=== PATIENT | male | born 1955 | race Caucasian/White ===

== ENCOUNTER → 2017-10-10 | Outpatient (CLI) | payer OTHER | LOC: M SLEEP 19:20 | DX: G47.30 Sleep apnea, unspecified (principal) | CPT/HCPCS: 95811 ==

== ENCOUNTER → 2018-03-10 | Outpatient (CLI) | payer OTHER ==
[2018-03-10 09:27] LABS: BASO % 0.6 % (0.0-1.0); EOS # 0.4 10^3/uL (0.0-0.50); EOS % 5.8 % (0.0-3.0); HEMOGLOBIN 13.7 g/dl (13.5-17.5); LYMPH # 1.2 10^3/uL (1.5-4.5); LYMPH % 18.6 % (24.0-44.0); MEAN CORPUSCULAR HEMOGLOBIN 31.8 pg (27.0-33.0); MEAN CORPUSCULAR HGB CONC 33.4 g/dl (32.0-36.5); MEAN CORPUSCULAR VOLUME 95.1 fl (80.0-96.0); MONO # 0.5 10^3/uL (0.0-0.8); MONO % 7.8 % (0.0-5.0); NEUTROPHILS # 4.3 10^3/uL (1.8-7.7); PLATELET COUNT, AUTOMATED 144 10^3/uL (150-450); RED BLOOD COUNT 4.31 10^6/uL (4.30-6.10); WHITE BLOOD COUNT 6.4 10^3/uL (4.0-10.0)
== END ==
LOC: M WUC 08:27
PROVIDERS: ATTEND Physician Assistant
DX: M79.672 Pain in left foot (principal)

== ENCOUNTER 2020-03-27 03:38 | Day surgery (SDC) | payer OTHER ==
[~2020-03-27] VITALS: Ht 200.7 cm; Wt 189.1 kg
[2020-03-27] VITALS (9 sets, daily range): BP systolic 127–224; BP diastolic 60–88
[2020-03-27] MEDS ORDERED: CARD240C5 PO (03:53)
[2020-03-27] MEDS ORDERED: DILT120T PO (03:53)
[2020-03-27] MEDS ORDERED: WARF-22 PO ×2 (03:53)
[2020-03-27] MEDS ORDERED: OLME1TAB51 PO (03:53)
[2020-03-27 04:40] LABS: BASO % 0.2 % (0.0-1.0); EOS # 0.2 10^3/uL (0.0-0.5); EOS % 2.2 % (0.0-3.0); HEMATOCRIT 41.4 % (42.0-52.0); HEMOGLOBIN 13.4 g/dl (13.5-17.5); LYMPH # 1.1 10^3/uL (1.5-5.0); LYMPH % 12.2 % (24.0-44.0); MEAN CORPUSCULAR HEMOGLOBIN 32.1 pg (27.0-33.0); MEAN CORPUSCULAR HGB CONC 32.4 g/dl (32.0-36.5); MEAN CORPUSCULAR VOLUME 99.3 fl (80.0-96.0); MONO # 0.7 10^3/uL (0.0-0.8); MONO % 7.4 % (0.0-5.0); NEUTROPHILS # 6.9 10^3/uL (1.5-8.5); NEUTROPHILS % 77.7 % (36.0-66.0); PLATELET COUNT, AUTOMATED 153 10^3/uL (150-450); RED BLOOD COUNT 4.17 10^6/uL (4.30-6.10); WHITE BLOOD COUNT 8.8 10^3/uL (4.0-10.0)
[2020-03-27 04:55] LABS: INR 2.76; PROTHROMBIN TIME 29.8 SECONDS (12.5-14.3)
[2020-03-27 04:56] LABS: PARTIAL THROMBOPLASTIN TIME 45.4 SECONDS (24.2-38.5)
--- NOTE | 2020-03-27 04:56 | REPVR ---
PROCEDURE INFORMATION: Exam: XR Chest, 1 View Exam date and time: 03/27/2020 4:18 AM Age: 64 years old Clinical indication: Chest pain TECHNIQUE: Imaging protocol: XR of the chest Views: 1 view. COMPARISON: No relevant prior studies available. FINDINGS: Lungs: Left retrocardiac opacity. Pleural space: Suggestion of left pleural effusion. Heart/Mediastinum: Cardiomegaly. Vasculature: Enlargement of the aortic knob. Bones/joints: Status post median sternotomy and probably CABG. IMPRESSION: Cardiomegaly and enlargement of the aortic knob. Suggestion of left pleural effusion. Electronically signed by: Connor Bhatt On 03/27/2020 04:56:28 AM
[2020-03-27 05:10] LABS: RSV AMPLIFICATION NEGATIVE (NEGATIVE)
[2020-03-27 05:14] LABS: BILIRUBIN,DIRECT 0.2 MG/DL (0.0-0.2); BILIRUBIN,TOTAL 0.7 MG/DL (0.2-1.0); CALCIUM LEVEL 8.8 MG/DL (8.8-10.2); CK-MB VALUE MASS 1.5 NG/ML (<3.6); CREATININE FOR GFR 1.71 MG/DL (0.70-1.30); FREE T4 1.3 NG/DL (0.76-1.46); GLOMERULAR FILTRATION RATE 43.3 (>49); MB/CK RELATIVE INDEX 1.01 (< OR =4); POTASSIUM SERUM 4.8 MEQ/L (3.5-5.1); THYROID STIMULATING HORMONE 2.84 uIU/ML (0.358-3.740); TOTAL PROTEIN 6.9 GM/DL (6.4-8.2); TROPONIN I 0.02 NG/ML (< 0.10)
[2020-03-27] MEDS ORDERED: ceFAZolin SOD 2 GM in IV 1 EA IV ONE (05:30)
[2020-03-27] MEDS ORDERED: WARF4TAB51 PO (05:53)
[2020-03-27] MEDS ORDERED: PHYTONADIONE INJection 5 MG in NS 50 ML IV ONE (06:00)
[2020-03-27] MEDS: DOBUTamine HCL 500,000 MCG in IV 1 EA IV SCH ×2 (09:07→09:14)
[2020-03-27] MEDS ORDERED: LIDOCAINE 1% MDV 20ML VIAL As Ordered ONE (09:48)
--- NOTE | 2020-03-27 09:51 | ECGEPIP ---
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
[2020-03-27] MEDS ORDERED: LIDOCAINE 1% MDV 20ML VIAL IM ONE (10:00)
--- NOTE | 2020-03-27 10:37 | REP ---
INDICATION: TEMPORARY PACER PLACEMENT COMPARISON: 03/27/2020 TECHNIQUE: Portable AP view of the chest FINDINGS: Stable cardiomegaly and postsurgical changes to the mediastinum and cardiac silhouette. Visualized lung vail are clear/stable. No obvious acute consolidation, effusion, or pneumothorax. IMPRESSION: No acute cardiopulmonary process appreciated. <Electronically signed by Andrzej Breaux > 03/27/20 1033
[2020-03-27 12:36] LABS: INR 1.8; PROTHROMBIN TIME 21.3 SECONDS (12.5-14.3)
[2020-03-27] MEDS ORDERED: LIDOCAINE 1% SDV 30ML VIAL As Ordered ONE (12:39)
[2020-03-27] MEDS ORDERED: propofoL 500 MG/50 ML VIAL As Ordered ONE (12:50)
[2020-03-27] MEDS ORDERED: dexameTHASONE 4 MG/ML 1ML VIAL (J1100 PER 1MG) As Ordered ONE (12:51)
[2020-03-27] MEDS ORDERED: MIDAZOLAM INJ 2MG/2ML VIAL (J2250 PER 1MG) As Ordered ONE ×2 (12:51→13:48)
[2020-03-27] MEDS ORDERED: ONDANSETRON 4MG/2ML VIAL As Ordered ONE (12:51)
[2020-03-27] MEDS ORDERED: KETAMINE HCL 200 MG/20 ML VIAL As Ordered ONE (12:51)
[2020-03-27] MEDS ORDERED: propofoL 200 MG/20 ML VIAL As Ordered ONE (14:30)
[2020-03-27] MEDS ORDERED: ACETAMINOPHEN 1000MG 100ML IV BTL (OFIRMEV) (J0131 PER 10MG) As Ordered ONE (15:10)
[2020-03-27] MEDS ORDERED: traMADol 50 MG TAB PO PRN (15:15)
[2020-03-27] MEDS ORDERED: ACETAMINOPHEN TAB 650MG DOSE (2X325MG) PO PRN (15:15)
[2020-03-27] MEDS ORDERED: LR 1,000 ML IV SCH (15:30)
[2020-03-27] MEDS ORDERED: oxyCODONE 5MG TAB PO PRN (15:30)
[2020-03-27] MEDS ORDERED: ONDANSETRON 4MG/2ML VIAL IV PRN (15:30)
--- NOTE | 2020-03-27 15:49 | REP ---
INDICATION: Post pacemaker implant COMPARISON: 03/27/2020 at 10:10 a.m. TECHNIQUE: Portable AP view of the chest FINDINGS: Patient is status post pacemaker placement. Stable cardiomegaly and diffuse chronic interstitial changes again noted. No obvious focal consolidation, effusion, or pneumothorax. IMPRESSION: Status post pacemaker. Stable cardiomegaly and chronic changes. <Electronically signed by Andrzej Breaux > 03/27/20 1545
[2020-03-27] MEDS ORDERED: SLF 3 ML SYR IV PRN (17:45)
[2020-03-27] MEDS: OLMESARTAN MEDOXOMIL 20 MG TAB (BENICAR) PO SCH (18:38)
[2020-03-27] MEDS: diltiaZEM **CD** 180 MG CAP PO SCH (21:04)
[2020-03-27] MEDS: ceFAZolin SOD 1 GM in D5W MINI-BAG PLUS 50 ML IV SCH (21:04)
[2020-03-27] MEDS: SLF 3 ML SYR IV SCH (21:05)
--- NOTE | 2020-03-27 23:28 | ECGEPIP ---
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 Patient was in a complete heart block. Electronically Signed on 03-27-2020 23:27:48 EST by Neftaly Mccarty
[2020-03-28] VITALS: BP 125/92
[2020-03-28 04:00] VITALS: BP 140/65
[2020-03-28] MEDS: ceFAZolin SOD 1 GM in D5W MINI-BAG PLUS 50 ML IV SCH ×2 (04:25→12:18)
[2020-03-28] MEDS: SLF 3 ML SYR IV SCH ×2 (05:16→12:18)
--- NOTE | 2020-03-28 06:46 | RO ---
OPERATIVE NOTE DATE OF OPERATION: 03/27/2020 PROCEDURE: Insertion of transvenous temporary pacemaker. IMPLANTING BREWERY PUMPER: Dr. Erik Simmons ANESTHESIA: Local. INDICATION: Complete heart block with near syncope. BRIEF DESCRIPTION: The patient presented earlier this morning at 4 a.m. to our emergency department having had a several-day history of near-syncope and rates as low as the 30s. However, earlier today he collapsed. In our emergency room, he presented with rates in the 30s and was asymptomatic in the supine position. However, during observation his rate dropped into the 20s and he developed an episode of confusion with heart rate of 15 beats per minute. In light of this, we elected to insert a temporary transvenous pacemaker while we were giving him low-dose vitamin k and fresh frozen plasma to try and correct his elevated PT/INR. DESCRIPTION OF PROCEDURE: The patient has been fasting. The right side of his neck was prepped and draped in the usual sterile fashion. The skin over the posterior approach to his right internal jugular vein was infiltrated with local anesthesia with 1% lidocaine. The right internal jugular vein was then catheterized using the Seldinger technique. A 6-[place] introducer with side port was advanced without difficulty. A 5-[place] balloon flotation bipolar pacing lead was then advanced under EKG control to the right ventricle. Pacing threshold less than 1 volt with intrinsic R waves of 5 millivolts. The side port introducer catheter was secured in position with a suture and the puncture site was dressed with an OpSite and gauze. His temporary packing pulse generator was set for a pulse of 50 beats per minute, output of 5 volts and at full sensitivity. No apparent complications. ESTIMATED BLOOD LOSS: Less than 5 mL. At this point, it should be safe to wait for his PT/INR to decrease prior to proceeding with permanent pacemaker implantation later today. [facility]
--- NOTE | 2020-03-28 06:59 | CR ---
EMERGENCY CARDIOLOGY CONSULTATION DATE: 03/27/2020 REFERRING PHYSICIAN: Tez Dillard M.D. at [facility] Emergency Room INDICATION: Recurrent near syncope and complete heart block. HISTORY: This 64-year-old , father of two grown children, retired resident of [place], [place], has a complicated history including a thoracic aneurysm and aortic valve disorder, status post aortic valve replacement (mechanical) and ascending aortic aneurysm repair 1998. He has been followed by Dr. Wong, credit specialist in [place] on a regular basis. Other medical problems include morbid obesity and hypertension. Does feel limited by shortness of breath, but denies orthopnea. Longstanding ankle swelling. No history of chest pain. Report coronary arteriogram showed no evidence of disease. Claims not to have had any follow up stress testing. Has had occasional palpitations, but not so much in the past few days. Denies history of systemic thromboembolic event, bleeding complication or fever or chills. Last echocardiogram with his credit specialist was May or June of last year and he claims his valve was working properly and ascending aorta was stable. On combination antihypertensive therapy, his blood pressure has been controlled 125-130/60s. Denies claudication. For at least the past two days, he has been feeling profound dizzy spells and he found his pulse to be slow. This morning while trying to get dressed, he collapsed, but he denies having lost consciousness. He had taken his pulse and found this to be in the 30s. His insisted he come to the emergency room. Upon presentation, when he walked in to the facility, he reported feeling some shortness of breath and low heart rate with intermittent pulse in high 30s for the past two days and that he fell earlier today. Initial vital signs showed a pulse rate of 46 beats per minute (BPM), blood pressure was 134/50, O2 saturation was 98% on room air, respiratory rate was 18. Portable upright chest x-ray showed obvious cardiomegaly with enlargement of his aortic knob, prior sternotomy, but they were unable to visualize his prosthetic valve because of his girth. No pulmonary venous congestion. Clear lung vali with possible left pleural effusion with left retrocardiac opacity. His electrocardiogram (EKG) showed complete heart block with junctional escape rhythm at 39 beats per minute (BPM). Transcutaneous, noninvasive pacing pads were applied and he was connected to a bedside cardioverted defibrillator external pacing system. Cardiology consultation was placed. In the absence of clearly triggering factor that might be reversible, the tentative plan was to arrange for permanent dual chamber pacemaker implantation. Once his oral anticoagulation was partially reversed (PT/INR was 2.7). Low-dose vitamin K and 2 units of fresh frozen plasma were ordered. While he was receiving his first unit of fresh frozen plasma, he was observed to have a heart rate drift to 15 beats per minute with associated confusion. I was contacted and recommended introduction of dobutamine IV infusion and came promptly to the hospital to insert a temporary transvenous pacemaker. CORONARY RISK FACTORS: Age, gender, obesity, hypertension. Life-long nonsmoker with no history of hyperlipidemia, diabetes or family history of premature coronary heart disease. OTHER PAST MEDICAL HISTORY: Morbid obesity. Tonsillectomy, appendectomy, peripheral venous insufficiency, severe obstructive sleep apnea (sleep study October 10, 2017). Peripheral venous insufficiency, seborrheic keratosis. Solitary pulmonary nodule 2012. Cancer of the colon with partial colectomy in 2012 with recent. Colonoscopic examination was Dr. Victoria Renee, showing no evidence of recurrent disease. Prostatism. SYSTEMS REVIEW: Has been free of any fever, chills or weight lost. Wear corrective lenses for reading. No known thyroid dysfunction. Effort dyspnea, but denies cough or sputum. No history of hemoptysis. Prior episodes of pneumonia. Denies heartburn, reflux, abdominal pain or change in bowel habit. No gastrointestinal (GI) bleeding. Nocturia times two nightly is chronic. No known renal insufficiency or kidney stones. Has ankle arthralgia, but no other musculoskeletal complaints. No abnormal bleeding on his oral anticoagulation. All other systems review is negative. MEDICATIONS: Diltiazem 240 mg by mouth daily q a.m. and 120 mg by mouth q.h.s., olmesartan/hydrochlorothiazide 40-12.5 mg tablets, one tablet daily, warfarin as directed (recently 10 mg daily, except for 12 mg ). ALLERGIES: ASPIRIN ? reaction. PHYSICAL EXAMINATION: CONSTITUTIONAL: Morbidly obese, late middle aged male, currently lying comfortably with the head of the bed elevated 30 degrees. Connected to a bedside cardioverted defibrillator/noninvasive pacing system. VITAL SIGNS: Heart rate 42 beats per minute (BPM) and regular with pauses on the monitor and rates down into the 20s. Blood pressure 167/70 supine, respiratory rate 20 on supplemental oxygen by nasal prongs at 2 liters, O2 saturation 99%. Afebrile. Weight 396 pounds, height 79 inches, body mass index (BMI) 44.6. EYES: Normal conjunctivae and lids. No xanthelasmas. ENT/MOUTH: Currently wearing a mask because of COVID. NECK: Trachea midline. Thyroid did not appear to be enlarged. Neck veins were challenging to evaluate because of his body habitus. RESPIRATORY: Increased anterior posterior chest diameter with normal chest expansion. Well-healed sternotomy incision. Good air entry of both lung vail with no current abnormal pulmonary adventitious sounds. CARDIOVASCULAR: Apical impulse not palpable. Heart sounds crisp opening and closing of his prosthetic valve. Could not detect a gallop or murmur. No rub. Carotid upstroke appeared to be brisk with increased volume, but slow rate as mentioned. No audible bruits. Upper extremity pulses were symmetrical and normal. Abdominal aorta was not palpable because of his obesity. Femoral pulses were also difficult. Pedal pulses were palpable despite some ankle swelling. Has 1 mm pitting edema and stasis dermatitis and pigmentation [address] both lower legs. No abdominal bruit. GI: Protuberant, soft and nontender. No apparent hepatosplenomegaly. Rectal examination not indicated. MUSCULOSKELETAL: No obvious joint deformities. Muscular strength and tone appear to be normal. Gait was not assessed at this time because of his complete heart block and near syncope. NEURO/PSYCH: At this time, he is bright, alert and oriented. He gave me lucid history. Eye, facial and extremities were symmetrical and normal. No involuntary movements. SKIN: Well-healed surgical incisions. No pallor, cyanosis or icterus. Degenerative skin changes as mentioned above, both lower legs. INVESTIGATIONS: Portable upright chest x-ray was reviewed independently: This study was done following the temporary transvenous pacemaker insertion, right internal jugular vein. In light of his obesity and girth, details of his lung vail were challenging. His heart was obviously enlarged and aorta slightly unfolded. No apparent infiltrate or visible pleural effusion. It was difficult to visualize his temporary transvenous pacing wire. Electrocardiogram (EKG) taken earlier this morning at 4:08 a.m. showed underlying sinus rhythm with rate 96 beats per minute. Complete heart block with junctional escape rhythm with ventricular rate of 36 beats per minute. Slightly low voltage, but normal axis. Slow precordial R wave progression. Cannot rule out a prior septal infarction, but this may well have been related to his body habitus alone. QRS complexes showed an incomplete left bundle branch block. Lateral ST scooping. No prior tracing for comparison. LAB WORK: Hemoglobin 13.4 with normal white blood cell count and platelet count. PT/INR 29.8-2.76, PTT was 45. Follow up PT/INR is pending. Following low-dose vitamin K, one and two units of fresh frozen plasma. COVID testing was negative. IMPRESSION/PLAN: 1. Complete heart block: Suspected to be related to intrinsic conduction tissue disease, status post remote aortic valve replacement and his hypertension. Has been unstable. Diltiazem therapy for his blood pressure, which is not likely responsible for what we are seeing. 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 The indication, procedure and potential risks were discussed with the patient who appeared to understand and agree. 2. Abnormal electrocardiogram (EKG): Despite his multiple risk factors, this patient has been free of any chest pain. His electrocardiogram (EKG) does not show significant repolarization abnormalities and his troponin I level was negative. We plan on ultimately continuing his protective combination diltiazem, angiotensin receptor galen and oral anticoagulant therapy. 3. Heart failure (diastolic/acute on chronic): Effort dyspnea is likely on the basis of several factors including his long-standing morbid obesity and degree of physical decondition. But echocardiogram performed earlier today does show left ventricular hypertrophy and a moderately dilated left atrium in keeping with a chronically elevated mean left atrial pressure. Undoubtedly, this is on the basis of his obesity and hypertension. Acute exacerbation likely related to his bradyarrhythmia. Pro BNP level today measured 2671. He does not appear to be clinically overloaded and I suspect his respiratory problems will improve following implantation of dual chamber pacemaker later today. 4. Hypertensive heart disease (benign with heart failure): Current systolic hypertension clearly related to his bradyarrhythmia compensating for his slow heart rate. Home blood pressure readings have been controlled on his combination calcium channel galen, angiotensin receptor galen and thiazide diuretic. Chemistry today shows electrolyte balance with BUN 55, creatinine 1.7. Undoubtedly significant prerenal azotemia on the basis of his bradyarrhythmia and renal hyperperfusion. I am also cautiously optimistic that this will significantly improve with uatsdin of a normal AV sequential contraction and normal heart rate. His customary antihypertensive therapy will be resumed postoperatively. 5. Aortic valve disorder (nonrheumatic)/post aortic valve replacement (mechanical): From his examination and his echocardiogram performed earlier today, his prosthetic valve appears to be functioning appropriately. Fortunately on his current oral anticoagulation, he has been free of symptomatic thromboembolic event or hemorrhagic complication. 6. Obesity (body mass index (BMI) 44): A long-standing problem undoubtedly contributing to excessive cardiac workload, his hypertension, as well as obstructive sleep apnea. His echocardiogram did show at least mildly dilated right heart chambers and pulmonary trunk, as well as dilated inferior vena cava. Undoubtedly, a degree of Cor pulmonale related to his sleep disorder. The above impressions were discussed with the patient, who appears to understand. We are cautiously optimistic. Permanent pacemaker implantation will be uncomplicated and he will be able to be discharged tomorrow morning. Tez Wong MD
--- NOTE | 2020-03-28 07:23 | RO ---
OPERATIVE NOTE DATE OF OPERATION: 03/27/2020 PROCEDURE: Implantation of dual-chamber pacemaker. IMPLANTING BALING PRESS OPERATOR: Erik Simmons MD, [facility] ANESTHESIOLOGIST: Van Duque Jr., PREOPERATIVE DIAGNOSES: 1. Complete block with near syncope/syncope. 2. Heart failure (diastolic/acute on chronic) due to his bradycardia. 3. Hypertensive heart disease (benign with heart failure). 4. Aortic valve disorder (non-rheumatic/post prosthetic valve (mechanical)). POSTOPERATIVE DIAGNOSES: 1. Complete block with near syncope/syncope. 2. Heart failure (diastolic/acute on chronic) due to his bradycardia. 3. Hypertensive heart disease (benign with heart failure). 4. Aortic valve disorder (non-rheumatic/post prosthetic valve (mechanical)). TYPE OF ANESTHESIA: Monitored local anesthesia. DESCRIPTION OF PROCEDURE: In the fasting state, following informed consent, he received Ancef 2 grams IV premedication and the patient was taken to the operating theatre. Numerous skin electrodes were applied to facilitate continuous echocardiographic monitoring. The patient had a previously placed right internal jugular temporary transvenous pacemaker in situ in light of symptomatic AV block with heart rate of 15 beats per minute earlier the same day. As a safety measure, we also had self-adhesive cardioverting/defibrillating pads in an anteroposterior configuration. The left subclavian region was prepped and draped in the usual fashion and the skin was infiltrated with 1% Xylocaine. The left axillary vein was catheterized using the micropuncture technique. A 5-cm linear incision was made several centimeters below and parallel to the left clavicle. Dissection was carried down to the level of the pectoralis fascia. The pocket was fashioned below the level of the incision line. Two bipolar screw-in active fixation steroid-eluting pacing leads were then positioned to the right ventricular apex and high right atrial appendage under fluoroscopic and electrocardiographic control. The ventricular lead ([employer], Model No. 2088TC/58, Serial No. [id number]) measurements were focal and stimulation threshold 0.6 V/0.4 ms/impedance 568 ohms. The R wave amplitude measured 13.9 mV. The atrial lead ([employer], Model No. 2088TC/52, Serial No. [id number]) measurements were focal and stimulation threshold 0.5 V/0.4 ms/impedance 378 ohms. The P wave amplitude measured 1.4 mV. This P wave in the recovery room had actually increased to 4.9 mV. By the time he reached the recovery room, there was no intrinsic ventricular activity. These leads were secured in position with sleeves sutured at their insertion site. They were then connected to a dual-chamber pulse generator ([employer], Model No. CZ2659, Serial No. [id number]) and appropriate DDP pacing was documented. The generator was placed in the pocket and secured in position with a suture through the right upper hand corner of the epoxy header. At this point, the temporary transvenous pacemaker was carefully removed under fluoroscopy. No apparent complications. ESTIMATED BLOOD LOSS: Approximately 10 mL. Postoperative portable upright chest x-ray showed good lead position with no pneumothorax. His EKG showed consistent atrially sensed sinus rhythm at 77 beats per minute with tracking and consistent ventricular paced QRS complexes having a left axis and LBBB configuration. Our plan is to monitor the patient on telemetry overnight and especially in light of his body habitus and the depth of his incision, we plan to give him an additional three doses of Ancef 1 gram IV every 8 hours. We anticipate his discharge from the hospital by approximately noon tomorrow. 9
[2020-03-28 07:36] LABS: CREATININE FOR GFR 1.42 MG/DL (0.70-1.30); GLOMERULAR FILTRATION RATE 53.6 (>49); POTASSIUM SERUM 5.8 MEQ/L (3.5-5.1)
[2020-03-28 08:00] VITALS: BP 150/60
--- NOTE | 2020-03-28 08:06 | ECGEPIP ---
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 Paced QRS complexes with left axis and LEFT BUNDLE BRANCH BLOCK configuration in keeping with RV apical stimulation. No change from 03/27/20. Electronically Signed on 03-28-2020 8:06:24 EST by Erik Simmons
--- NOTE | 2020-03-28 08:06 | REP ---
INDICATION: Post pacemaker implant COMPARISON: 03/27/2020 TECHNIQUE: PA and lateral. FINDINGS: Recently placed pacemaker in stable satisfactory position. The lung vail are essentially unchanged with chronic elevation to the left hemidiaphragm and suspected chronic basilar changes. No obvious new acute process identified. No evidence for pneumothorax. No definite effusion. Skeletal structures are intact.. IMPRESSION: No significant change from prior examination. <Electronically signed by Andrzej Breaux > 03/28/20 0802
[2020-03-28] MEDS ORDERED: WARFARIN SOD 5MG TAB PO ONE (08:15)
--- NOTE | 2020-03-28 08:18 | ECHO ---
DATE OF PROCEDURE: 03/27/2020 Age: 64 Gender: Male Height: 76 inches Weight: 390 pounds Body surface area: 2.94 m2 PATIENT LOCATION: Outpatient in the emergency room. REFERRING PHYSICIAN: Tez Dillard M.D. and Erik Simmons M.D. INDICATION: Cardiomegaly. Mechanical aortic valve. Shortness of breath. MEASUREMENTS: 2D Measurements: RV 4.2 cm LV 5.6 cm Septum 1.3 cm Posterior wall 1.3 cm Aortic Root 4.2 cm Ascending aorta 4.2 cm Aortic arch 5.6 cm Proximal ascending aorta 3.8 cm LA 5.2 cm LVEF 70% Doppler Measurements: AV 3.2 m/s LVOT 1.24 m/s Mean AV gradient 19 mmHg Dimensionless index 0.44 MV-E 100 Early mitral deceleration time 193 msec IVC 2.1 cm COMMENTS: Underlying sinus rhythm with complete heart block and ventricular rate 29 BPM. No intraventricular conduction disturbance. Technically challenging study in light of the patients body habitus, but some diagnostically useful information was still obtained. M-mode and two-dimensional echocardiography was performed with pulse, continuous wave, and color flow studies. Slightly dilated and symmetrically hypertrophied left ventricle with hyperkinetic wall motion related to his complete heart block. At least moderately dilated left atrium. Borderline right heart chamber enlargement with adequate right ventricular free wall motion. Unable to obtain adequate Doppler signal to assess right ventricular systolic pressure, but his pulmonary trunk was 3.5 cm in keeping with chronic pulmonary hypertension. Mildly dilated IVC with adequate respiratory collapse against a significantly elevated central venous pressure at this time. Status post replacement of his aortic root and descending aorta with at least mildly dilated measurements. His aortic arch was prominently dilated and ascending aorta was essentially normal in size. Very small posterior pericardial effusion without evidence of cardiac chamber compression. MTDD
[2020-03-28] MEDS: OLMESARTAN MEDOXOMIL 20 MG TAB (BENICAR) PO SCH (08:25)
[2020-03-28 08:26] VITALS: BP 150/60
[2020-03-28] MEDS: diltiaZEM **CD** 180 MG CAP PO SCH (08:26)
[2020-03-28 12:00] VITALS: BP 145/65
== END 2020-03-28 16:45 | disposition home or self-care (01) ==
LOC: M ED 03:38 → M SDC 12:55 → M PCU 15:54 → M SDC 03-28 16:45
PROVIDERS: ATTEND Internal Medicine Cardiovascular Disease
DX: I44.2 Atrioventricular block, complete (principal); R55 Syncope and collapse; I50.33 Acute on chronic diastolic (congestive) heart failure; I11.0 Hypertensive heart disease with heart failure; G47.30 Sleep apnea, unspecified; I35.9 Nonrheumatic aortic valve disorder, unspecified; E66.01 Morbid (severe) obesity due to excess calories; R94.31 Abnormal electrocardiogram [ECG] [EKG]; Z79.01 Long term (current) use of anticoagulants; Z88.8 Allergy status to other drugs, medicaments and biological substances
CPT/HCPCS: 33208; 33210; 36415; 36430; 71045; 71046; 76000; 80048; 80076; 82550; 82553; 83690; 83880; 84439; 84443; 84484; 85025; 85610; 85730; 86900; 86901; 86927; 87631; 93005; 93041; 93306; 94760; 96361; 96365; 96366; 96367; 96372; 99285; C1785; C1898; J0690; J1100; J1250; J2250; J2405; J3430; P9017

== ENCOUNTER 2021-01-22 08:38 | Inpatient (IN) | payer OTHER ==
[~2021-01-22] VITALS: Ht 198.1 cm; Wt 168.4 kg
[~2021-01-22 08:38] MED LIST: CARD240C5 PO; DILT120T PO; OLME1TAB51 PO; WARF-22 PO; WARF4TAB51 PO
[2021-01-22 09:53] LABS: BASO % 0.2 % (0.0-1.0); HEMATOCRIT 34.7 % (42.0-52.0); HEMOGLOBIN 11.6 g/dl (13.5-17.5); LYMPH # 0.5 10^3/uL (1.5-5.0); LYMPH % 11.5 % (24.0-44.0); MEAN CORPUSCULAR HEMOGLOBIN 31.9 pg (27.0-33.0); MEAN CORPUSCULAR HGB CONC 33.4 g/dl (32.0-36.5); MEAN CORPUSCULAR VOLUME 95.3 fl (80.0-96.0); MONO # 0.3 10^3/uL (0.0-0.8); MONO % 8.4 % (2.0-8.0); NEUTROPHILS # 3.2 10^3/uL (1.5-8.5); NEUTROPHILS % 79.2 % (36.0-66.0); PLATELET COUNT, AUTOMATED 113 10^3/uL (150-450); RED BLOOD COUNT 3.64 10^6/uL (4.30-6.10); WHITE BLOOD COUNT 4.1 10^3/uL (4.0-10.0)
[2021-01-22 09:56] LABS: ABG BASE EXCESS 1.2 (-2.0-2.0); ABG HCO3 24.5 MEQ/L (22.0-26.0); ABG O2 SATURATION 97.3 % (95.0-99.0); ABG PARTIAL PRESSURE CO2 34.7 mmHg (35.0-45.0); ABG PARTIAL PRESSURE O2 94.5 mmHg (75.0-100.0); ABG STANDARD HCO3 25.5 MEQ/L (22.0-26.0); ABG TOTAL CO2 25.6 MEQ/L (23.0-31.0); ABG pH (ARTERIAL) 7.467 UNITS (7.350-7.450)
[2021-01-22] MEDS ORDERED: WARF-23 PO (10:24)
[2021-01-22] MEDS ORDERED: DILT120C89 PO (10:24)
[2021-01-22 10:26] LABS: ALT/SGPT 20 U/L (12-78); BILIRUBIN,TOTAL 0.9 MG/DL (0.2-1.0); BLOOD UREA NITROGEN 39 MG/DL (7-18); C REACTIVE PROTEIN QUANTITATIV 8.92 MG/DL (0.00-0.30); CALCIUM LEVEL 8.1 MG/DL (8.8-10.2); CARBON DIOXIDE LEVEL 27 MEQ/L (21-32); CHLORIDE LEVEL 100 MEQ/L (98-107); CK-MB VALUE MASS < 1.0 NG/ML (<3.6); CPK CREATINE PHOSPHOKINASE 183 U/L (39-308); CREATININE FOR GFR 1.74 MG/DL (0.70-1.30); FERRITIN 1035 NG/ML (26-388); GLOMERULAR FILTRATION RATE 42.3 (>49); GLUCOSE, FASTING 108 MG/DL (70-100); LDH LACTATE DEHYDROGENASE 487 U/L (87-241); MB/CK RELATIVE INDEX 0.55 (< OR =4); POTASSIUM SERUM 4.6 MEQ/L (3.5-5.1); SODIUM LEVEL 134 MEQ/L (136-145); TROPONIN I < 0.02 NG/ML (< 0.10)
[2021-01-22] MEDS ORDERED: VITMTA PO (10:33)
[2021-01-22] MEDS ORDERED: D31000TA2 PO (10:33)
[2021-01-22] MEDS ORDERED: VITA250T4 PO (10:33)
[2021-01-22] MEDS ORDERED: HOME MED LIST COMPLETE! XX SCH (10:35)
[2021-01-22] MEDS ORDERED: DOXYCYCLINE HYCLATE 100 MG in D5W MINI-BAG PLUS 100 ML IV SCH (11:45)
[2021-01-22] MEDS ORDERED: cefTRIAXone SOD 1 GM in D5W MINI-BAG PLUS 50 ML IV SCH (11:45)
[2021-01-22] MEDS: dexameTHASONE 4 MG/ML 1ML VIAL (J1100 PER 1MG) IV SCH (12:27)
[2021-01-22] MEDS: guaiFENesin ER 600 MG TAB PO SCH ×2 (12:27→20:52)
[2021-01-22 13:51] LABS: INR 1.54; PROTHROMBIN TIME 18.9 SECONDS (12.7-14.5)
[2021-01-22 13:54] LABS: D-DIMER QUANT 2295.55 ng/ml (<500)
[2021-01-22 14:07] LABS: MAGNESIUM LEVEL 1.9 MG/DL (1.8-2.4)
[2021-01-22] MEDS ORDERED: REMDESIVIR 200 MG in NS 250 ML IV ONE (15:00)
[2021-01-22 16:25] VITALS: O2SAT 91
[2021-01-22 17:00] VITALS: BP 117/59
[2021-01-22] MEDS ORDERED: SODIUM CHLORIDE 0.9% INJ 10 ML SYR IV ONE (17:00)
[2021-01-22] MEDS: WARFARIN SOD 5MG TAB PO SCH (19:24)
[2021-01-22 22:15] VITALS: BP 102/53
[2021-01-23] VITALS: O2SAT 91
[2021-01-23 04:00] VITALS: O2SAT 90
[2021-01-23 05:59] VITALS: BP 118/57
[2021-01-23 07:11] LABS: BASO % 0.2 % (0.0-1.0); HEMATOCRIT 37.6 % (42.0-52.0); HEMOGLOBIN 12.7 g/dl (13.5-17.5); LYMPH # 0.6 10^3/uL (1.5-5.0); LYMPH % 12.9 % (24.0-44.0); MEAN CORPUSCULAR HEMOGLOBIN 31.5 pg (27.0-33.0); MEAN CORPUSCULAR HGB CONC 33.8 g/dl (32.0-36.5); MEAN CORPUSCULAR VOLUME 93.3 fl (80.0-96.0); MONO # 0.5 10^3/uL (0.0-0.8); MONO % 10.4 % (2.0-8.0); NEUTROPHILS # 3.4 10^3/uL (1.5-8.5); NEUTROPHILS % 75.8 % (36.0-66.0); PLATELET COUNT, AUTOMATED 139 10^3/uL (150-450); RED BLOOD COUNT 4.03 10^6/uL (4.30-6.10); WHITE BLOOD COUNT 4.5 10^3/uL (4.0-10.0)
[2021-01-23 07:26] LABS: INR 1.92; PROTHROMBIN TIME 22.4 SECONDS (12.7-14.5)
[2021-01-23 07:39] LABS: ALBUMIN 3.1 GM/DL (3.2-5.2); BILIRUBIN,TOTAL 0.7 MG/DL (0.2-1.0); CALCIUM LEVEL 8.8 MG/DL (8.8-10.2); CREATININE FOR GFR 1.47 MG/DL (0.70-1.30); GLOMERULAR FILTRATION RATE 51.3 (>49); MAGNESIUM LEVEL 2.2 MG/DL (1.8-2.4); POTASSIUM SERUM 4.5 MEQ/L (3.5-5.1); TOTAL PROTEIN 7.2 GM/DL (6.4-8.2)
[2021-01-23] MEDS: MULTIVITAMINS/MINERALS THERAP 1 TAB PO SCH (09:31)
[2021-01-23] MEDS: dexameTHASONE 4 MG/ML 1ML VIAL (J1100 PER 1MG) IV SCH (09:31)
[2021-01-23] MEDS: BARICITINIB 2MG TABLET (OLUMIANT) FOR EUA PO SCH (09:32)
[2021-01-23] MEDS: guaiFENesin ER 600 MG TAB PO SCH ×2 (09:32→22:48)
[2021-01-23 13:11] LABS: APPEARANCE, URINE HAZY (CLEAR); BACTERIA, URINE AUTO NEGATIVE (NEGATIVE); BILIRUBIN, URINE AUTO NEGATIVE (NEGATIVE); BLOOD, URINE BLOOD NEGATIVE (NEGATIVE); COLOR, URINE YELLOW (YELLOW); GLUCOSE, URINE (UA) AUTO NEGATIVE (NEGATIVE); KETONE, URINE AUTO NEGATIVE (NEGATIVE); LEUKOCYTE ESTERASE, URINE AUTO NEGATIVE (NEGATIVE); MUCUS, URINE SMALL (NEGATIVE); NITRITE, URINE AUTO NEGATIVE (NEGATIVE); PROTEIN, URINE AUTO NEGATIVE (NEGATIVE); RBC, URINE AUTO 0 /HPF (0-3); SPECIFIC GRAVITY URINE AUTO 1.017 (1.002-1.035); SQUAMOUS EPITHELIAL CELL UR AU 0 /HPF (0-6); UROBILINOGEN, URINE AUTO 0.2 mg/dL (0.0-2.0); WBC, URINE AUTO 1 /HPF (0-3)
[2021-01-23] MEDS: REMDESIVIR 100 MG in NS 250 ML IV SCH (14:47)
[2021-01-23 14:54] VITALS: BP 120/61
[2021-01-23] MEDS: SODIUM CHLORIDE 0.9% INJ 10 ML SYR IV SCH (15:47)
[2021-01-23] MEDS: WARFARIN SOD 5MG TAB PO SCH (16:33)
[2021-01-23 19:56] VITALS: O2SAT 90
[2021-01-23 20:00] VITALS: BP 125/59
[2021-01-24] VITALS (16 sets, daily range): BP systolic 99–142; BP diastolic 44–102; O2SAT 83–97
[2021-01-24] MEDS ORDERED: IPRATROPIUM 0.5MG/ALBUTEROL 2.5MG INH SOL UD 3ML (DUONEB) NEB PRN (02:20)
[2021-01-24 07:09] LABS: HEMATOCRIT 35.5 % (42.0-52.0); HEMOGLOBIN 12.1 g/dl (13.5-17.5); LYMPH # 0.6 10^3/uL (1.5-5.0); LYMPH % 10.1 % (24.0-44.0); MEAN CORPUSCULAR HEMOGLOBIN 31.6 pg (27.0-33.0); MEAN CORPUSCULAR HGB CONC 34.1 g/dl (32.0-36.5); MEAN CORPUSCULAR VOLUME 92.7 fl (80.0-96.0); MONO # 0.6 10^3/uL (0.0-0.8); MONO % 8.8 % (2.0-8.0); NEUTROPHILS % 80.6 % (36.0-66.0); PLATELET COUNT, AUTOMATED 159 10^3/uL (150-450); RED BLOOD COUNT 3.83 10^6/uL (4.30-6.10); WHITE BLOOD COUNT 6.2 10^3/uL (4.0-10.0)
[2021-01-24 07:26] LABS: INR 2.63; PROTHROMBIN TIME 28.5 SECONDS (12.7-14.5)
[2021-01-24 07:27] LABS: ALBUMIN 2.9 GM/DL (3.2-5.2); ALT/SGPT 28 U/L (12-78); BILIRUBIN,TOTAL 0.8 MG/DL (0.2-1.0); BLOOD UREA NITROGEN 51 MG/DL (7-18); CALCIUM LEVEL 8.8 MG/DL (8.8-10.2); CARBON DIOXIDE LEVEL 24 MEQ/L (21-32); CHLORIDE LEVEL 102 MEQ/L (98-107); CPK CREATINE PHOSPHOKINASE 460 U/L (39-308); CREATININE FOR GFR 1.34 MG/DL (0.70-1.30); FERRITIN 1596 NG/ML (26-388); GLOMERULAR FILTRATION RATE 57.1 (>49); GLUCOSE, FASTING 122 MG/DL (70-100); LDH LACTATE DEHYDROGENASE 588 U/L (87-241); MAGNESIUM LEVEL 2.3 MG/DL (1.8-2.4); NT-PRO BNP 733 PG/ML (<125); PARTIAL THROMBOPLASTIN TIME 55.3 SECONDS (25.9-37.0); POTASSIUM SERUM 4.5 MEQ/L (3.5-5.1); SODIUM LEVEL 136 MEQ/L (136-145); TOTAL PROTEIN 6.7 GM/DL (6.4-8.2); TROPONIN I < 0.02 NG/ML (< 0.10)
[2021-01-24] MEDS: guaiFENesin ER 600 MG TAB PO SCH ×2 (08:11→20:13)
[2021-01-24] MEDS: dexameTHASONE 4 MG/ML 1ML VIAL (J1100 PER 1MG) IV SCH (08:12)
[2021-01-24] MEDS: MULTIVITAMINS/MINERALS THERAP 1 TAB PO SCH (08:12)
[2021-01-24] MEDS: BARICITINIB 2MG TABLET (OLUMIANT) FOR EUA PO SCH (08:12)
[2021-01-24 15:12] LABS: MYCOPLASMA PNEUMONIAE IgG 639 U/mL (0-99); MYCOPLASMA PNEUMONIAE IgM <770 U/mL (0-769)
[2021-01-24] MEDS: REMDESIVIR 100 MG in NS 250 ML IV SCH (15:32)
[2021-01-24] MEDS: SODIUM CHLORIDE 0.9% INJ 10 ML SYR IV SCH (15:33)
[2021-01-24] MEDS: WARFARIN SOD 5MG TAB PO SCH (16:32)
[2021-01-24] MEDS: hydrOXYzine 25 MG TAB PO PRN (20:23)
[2021-01-25] VITALS (7 sets, daily range): BP systolic 125–164; BP diastolic 53–73; O2SAT 84–96
[2021-01-25] MEDS: hydrOXYzine 25 MG TAB PO PRN (02:38)
[2021-01-25 08:00] LABS: HEMATOCRIT 34.9 % (42.0-52.0); HEMOGLOBIN 11.7 g/dl (13.5-17.5); MEAN CORPUSCULAR HEMOGLOBIN 31.3 pg (27.0-33.0); MEAN CORPUSCULAR HGB CONC 33.5 g/dl (32.0-36.5); MEAN CORPUSCULAR VOLUME 93.3 fl (80.0-96.0); PLATELET COUNT, AUTOMATED 175 10^3/uL (150-450); RED BLOOD COUNT 3.74 10^6/uL (4.30-6.10); WHITE BLOOD COUNT 6.8 10^3/uL (4.0-10.0)
[2021-01-25 08:11] LABS: BLOOD UREA NITROGEN 44 MG/DL (7-18); CREATININE FOR GFR 1.16 MG/DL (0.70-1.30); GLUCOSE, FASTING 114 MG/DL (70-100)
[2021-01-25 08:12] LABS: ALBUMIN 2.8 GM/DL (3.2-5.2); ALT/SGPT 32 U/L (12-78); BILIRUBIN,TOTAL 0.8 MG/DL (0.2-1.0); CALCIUM LEVEL 8.7 MG/DL (8.8-10.2); CARBON DIOXIDE LEVEL 28 MEQ/L (21-32); CHLORIDE LEVEL 104 MEQ/L (98-107); GLOMERULAR FILTRATION RATE > 60.0 (>49); MAGNESIUM LEVEL 2.2 MG/DL (1.8-2.4); POTASSIUM SERUM 4.4 MEQ/L (3.5-5.1); SODIUM LEVEL 136 MEQ/L (136-145); TOTAL PROTEIN 6.6 GM/DL (6.4-8.2)
[2021-01-25 08:14] LABS: INR 3.6; PROTHROMBIN TIME 36.1 SECONDS (12.7-14.5)
[2021-01-25 08:44] LABS: ATYPICAL LYMPH 1 % (0-5); LYMPHOCYTES 9 % (16-44); MONOCYTES 9 % (0-5); NEUTROPHILS 81 % (28-66)
[2021-01-25 08:45] LABS: PLATELET ESTIMATE NORMAL (NORMAL)
[2021-01-25] MEDS: guaiFENesin ER 600 MG TAB PO SCH ×2 (10:27→20:55)
[2021-01-25] MEDS: BARICITINIB 2MG TABLET (OLUMIANT) FOR EUA PO SCH (10:27)
[2021-01-25] MEDS: dexameTHASONE 4 MG/ML 1ML VIAL (J1100 PER 1MG) IV SCH (10:27)
[2021-01-25] MEDS: MULTIVITAMINS/MINERALS THERAP 1 TAB PO SCH (10:27)
[2021-01-25] MEDS: REMDESIVIR 100 MG in NS 250 ML IV SCH (16:45)
[2021-01-25] MEDS: SODIUM CHLORIDE 0.9% INJ 10 ML SYR IV SCH (16:46)
[2021-01-25 19:07] LABS: BODY FLUID CULTURE Not indicated. (.); LEGIONELLA ANTIGEN URINE Negative (Negative); ORGANISM ID Not indicated. (.); SPECIMEN SOURCE Urine (.); URINE STREP PNEUMONIAE ANTIGEN Negative (Negative)
[2021-01-26] VITALS (9 sets, daily range): BP systolic 137–162; BP diastolic 63–81; O2SAT 96–98
[2021-01-26] MEDS: hydrOXYzine 25 MG TAB PO PRN ×2 (01:14→20:20)
[2021-01-26 04:57] LABS: BASO % 0.2 % (0.0-1.0); HEMATOCRIT 37.8 % (42.0-52.0); HEMOGLOBIN 12.9 g/dl (13.5-17.5); LYMPH # 0.6 10^3/uL (1.5-5.0); LYMPH % 5.4 % (24.0-44.0); MEAN CORPUSCULAR HEMOGLOBIN 31.8 pg (27.0-33.0); MEAN CORPUSCULAR HGB CONC 34.1 g/dl (32.0-36.5); MEAN CORPUSCULAR VOLUME 93.1 fl (80.0-96.0); MONO # 0.8 10^3/uL (0.0-0.8); MONO % 6.8 % (2.0-8.0); NEUTROPHILS # 9.7 10^3/uL (1.5-8.5); NEUTROPHILS % 86.8 % (36.0-66.0); PLATELET COUNT, AUTOMATED 201 10^3/uL (150-450); RED BLOOD COUNT 4.06 10^6/uL (4.30-6.10); WHITE BLOOD COUNT 11.2 10^3/uL (4.0-10.0)
[2021-01-26 05:08] LABS: INR 4.29; PROTHROMBIN TIME 41.4 SECONDS (12.7-14.5)
[2021-01-26 05:09] LABS: PARTIAL THROMBOPLASTIN TIME 60.1 SECONDS (25.9-37.0)
[2021-01-26 05:28] LABS: ALT/SGPT 38 U/L (12-78); BLOOD UREA NITROGEN 41 MG/DL (7-18); CALCIUM LEVEL 8.7 MG/DL (8.8-10.2); CARBON DIOXIDE LEVEL 25 MEQ/L (21-32); CHLORIDE LEVEL 106 MEQ/L (98-107); CPK CREATINE PHOSPHOKINASE 626 U/L (39-308); CREATININE FOR GFR 1.15 MG/DL (0.70-1.30); GLOMERULAR FILTRATION RATE > 60.0 (>49); GLUCOSE, FASTING 122 MG/DL (70-100); LDH LACTATE DEHYDROGENASE 875 U/L (87-241); POTASSIUM SERUM 4.7 MEQ/L (3.5-5.1); SODIUM LEVEL 137 MEQ/L (136-145)
[2021-01-26 05:29] LABS: FERRITIN 1204 NG/ML (26-388); MAGNESIUM LEVEL 2.3 MG/DL (1.8-2.4); NT-PRO BNP 1886 PG/ML (<125); TOTAL PROTEIN 6.9 GM/DL (6.4-8.2); TROPONIN I 0.02 NG/ML (< 0.10)
[2021-01-26] MEDS: MULTIVITAMINS/MINERALS THERAP 1 TAB PO SCH (07:53)
[2021-01-26] MEDS: guaiFENesin ER 600 MG TAB PO SCH ×2 (07:53→20:19)
[2021-01-26] MEDS: dexameTHASONE 4 MG/ML 1ML VIAL (J1100 PER 1MG) IV SCH (07:55)
[2021-01-26] MEDS: BARICITINIB 2MG TABLET (OLUMIANT) FOR EUA PO SCH (07:56)
[2021-01-26] MEDS: SODIUM CHLORIDE 0.9% INJ 10 ML SYR IV SCH (15:03)
[2021-01-26] MEDS: REMDESIVIR 100 MG in NS 250 ML IV SCH (15:03)
[2021-01-26] MEDS: OLMESARTAN MEDOXOMIL 20 MG TAB (BENICAR) PO SCH ×2 (15:04→15:11)
[2021-01-27] VITALS (13 sets, daily range): BP systolic 115–171; BP diastolic 61–85; O2SAT 87–96
[2021-01-27 04:46] LABS: BASO % 0.1 % (0.0-1.0); HEMATOCRIT 37.8 % (42.0-52.0); HEMOGLOBIN 12.8 g/dl (13.5-17.5); LYMPH # 0.4 10^3/uL (1.5-5.0); LYMPH % 3.2 % (24.0-44.0); MEAN CORPUSCULAR HEMOGLOBIN 31.9 pg (27.0-33.0); MEAN CORPUSCULAR HGB CONC 33.9 g/dl (32.0-36.5); MEAN CORPUSCULAR VOLUME 94.3 fl (80.0-96.0); MONO # 0.7 10^3/uL (0.0-0.8); MONO % 4.8 % (2.0-8.0); NEUTROPHILS # 12.2 10^3/uL (1.5-8.5); NEUTROPHILS % 90.9 % (36.0-66.0); PLATELET COUNT, AUTOMATED 212 10^3/uL (150-450); RED BLOOD COUNT 4.01 10^6/uL (4.30-6.10); WHITE BLOOD COUNT 13.4 10^3/uL (4.0-10.0)
[2021-01-27 04:58] LABS: INR 4.39; PROTHROMBIN TIME 42.1 SECONDS (12.7-14.5)
[2021-01-27 05:11] LABS: BILIRUBIN,TOTAL 1.3 MG/DL (0.2-1.0); CALCIUM LEVEL 8.6 MG/DL (8.8-10.2); CREATININE FOR GFR 1.4 MG/DL (0.70-1.30); GLOMERULAR FILTRATION RATE 54.3 (>49); MAGNESIUM LEVEL 2.4 MG/DL (1.8-2.4); POTASSIUM SERUM 4.7 MEQ/L (3.5-5.1); TOTAL PROTEIN 6.5 GM/DL (6.4-8.2)
[2021-01-27] MEDS: guaiFENesin ER 600 MG TAB PO SCH ×2 (08:46→20:38)
[2021-01-27] MEDS: dexameTHASONE 4 MG/ML 1ML VIAL (J1100 PER 1MG) IV SCH (08:46)
[2021-01-27] MEDS: MULTIVITAMINS/MINERALS THERAP 1 TAB PO SCH (08:46)
[2021-01-27] MEDS: BARICITINIB 2MG TABLET (OLUMIANT) FOR EUA PO SCH (08:46)
[2021-01-27] MEDS: hydrOXYzine 25 MG TAB PO PRN (20:38)
[2021-01-28] VITALS (8 sets, daily range): BP systolic 137–163; BP diastolic 63–99; O2SAT 88
[2021-01-28 05:25] LABS: BASO % 0.2 % (0.0-1.0); HEMATOCRIT 37.1 % (42.0-52.0); HEMOGLOBIN 12.5 g/dl (13.5-17.5); LYMPH # 0.4 10^3/uL (1.5-5.0); MEAN CORPUSCULAR HEMOGLOBIN 31.7 pg (27.0-33.0); MEAN CORPUSCULAR HGB CONC 33.7 g/dl (32.0-36.5); MEAN CORPUSCULAR VOLUME 94.2 fl (80.0-96.0); MONO # 0.5 10^3/uL (0.0-0.8); MONO % 3.6 % (2.0-8.0); NEUTROPHILS # 13.4 10^3/uL (1.5-8.5); NEUTROPHILS % 91.5 % (36.0-66.0); PLATELET COUNT, AUTOMATED 182 10^3/uL (150-450); RED BLOOD COUNT 3.94 10^6/uL (4.30-6.10); WHITE BLOOD COUNT 14.6 10^3/uL (4.0-10.0)
[2021-01-28 05:36] LABS: PROTHROMBIN TIME 48.9 SECONDS (12.7-14.5)
[2021-01-28 05:37] LABS: PARTIAL THROMBOPLASTIN TIME 74.5 SECONDS (25.9-37.0)
[2021-01-28 05:38] LABS: INR 5.35
[2021-01-28 05:49] LABS: ALBUMIN 2.9 GM/DL (3.2-5.2); ALT/SGPT 35 U/L (12-78); BILIRUBIN,TOTAL 1.4 MG/DL (0.2-1.0); BLOOD UREA NITROGEN 52 MG/DL (7-18); CALCIUM LEVEL 8.9 MG/DL (8.8-10.2); CARBON DIOXIDE LEVEL 27 MEQ/L (21-32); CHLORIDE LEVEL 104 MEQ/L (98-107); CPK CREATINE PHOSPHOKINASE 337 U/L (39-308); FERRITIN 1205 NG/ML (26-388); GLOMERULAR FILTRATION RATE > 60.0 (>49); GLUCOSE, FASTING 134 MG/DL (70-100); LDH LACTATE DEHYDROGENASE 941 U/L (87-241); MAGNESIUM LEVEL 2.5 MG/DL (1.8-2.4); NT-PRO BNP 1702 PG/ML (<125); POTASSIUM SERUM 4.5 MEQ/L (3.5-5.1); SODIUM LEVEL 137 MEQ/L (136-145); TOTAL PROTEIN 6.9 GM/DL (6.4-8.2); TROPONIN I < 0.02 NG/ML (< 0.10)
[2021-01-28] MEDS: dexameTHASONE 4 MG/ML 1ML VIAL (J1100 PER 1MG) IV SCH (08:06)
[2021-01-28] MEDS: MULTIVITAMINS/MINERALS THERAP 1 TAB PO SCH (08:07)
[2021-01-28] MEDS: guaiFENesin ER 600 MG TAB PO SCH ×2 (08:08→20:33)
[2021-01-28] MEDS: BARICITINIB 2MG TABLET (OLUMIANT) FOR EUA PO SCH (08:10)
[2021-01-28] MEDS: hydrOXYzine 25 MG TAB PO PRN (20:33)
[2021-01-29] VITALS (18 sets, daily range): BP systolic 134–233; BP diastolic 63–102
[2021-01-29] MEDS: LORazepam 2 MG/ML VIAL IV PRN ×2 (02:57→17:48)
[2021-01-29 05:47] LABS: BASO % 0.2 % (0.0-1.0); HEMATOCRIT 35.5 % (42.0-52.0); HEMOGLOBIN 12.2 g/dl (13.5-17.5); LYMPH # 0.4 10^3/uL (1.5-5.0); LYMPH % 2.9 % (24.0-44.0); MEAN CORPUSCULAR HEMOGLOBIN 32.2 pg (27.0-33.0); MEAN CORPUSCULAR HGB CONC 34.4 g/dl (32.0-36.5); MEAN CORPUSCULAR VOLUME 93.7 fl (80.0-96.0); MONO # 0.5 10^3/uL (0.0-0.8); MONO % 3.4 % (2.0-8.0); NEUTROPHILS # 13.9 10^3/uL (1.5-8.5); NEUTROPHILS % 91.6 % (36.0-66.0); PLATELET COUNT, AUTOMATED 180 10^3/uL (150-450); RED BLOOD COUNT 3.79 10^6/uL (4.30-6.10); WHITE BLOOD COUNT 15.2 10^3/uL (4.0-10.0)
[2021-01-29 05:58] LABS: PROTHROMBIN TIME 49.7 SECONDS (12.7-14.5)
[2021-01-29 06:09] LABS: ALBUMIN 2.7 GM/DL (3.2-5.2); ALT/SGPT 31 U/L (12-78); BILIRUBIN,TOTAL 1.3 MG/DL (0.2-1.0); BLOOD UREA NITROGEN 60 MG/DL (7-18); CALCIUM LEVEL 8.9 MG/DL (8.8-10.2); CARBON DIOXIDE LEVEL 26 MEQ/L (21-32); CHLORIDE LEVEL 104 MEQ/L (98-107); CREATININE FOR GFR 1.18 MG/DL (0.70-1.30); GLOMERULAR FILTRATION RATE > 60.0 (>49); GLUCOSE, FASTING 128 MG/DL (70-100); MAGNESIUM LEVEL 2.4 MG/DL (1.8-2.4); POTASSIUM SERUM 4.3 MEQ/L (3.5-5.1); SODIUM LEVEL 138 MEQ/L (136-145); TOTAL PROTEIN 6.6 GM/DL (6.4-8.2)
[2021-01-29 06:47] LABS: INR 5.46
[2021-01-29] MEDS: dexameTHASONE 4 MG/ML 1ML VIAL (J1100 PER 1MG) IV SCH (09:35)
[2021-01-29] MEDS: BARICITINIB 2MG TABLET (OLUMIANT) FOR EUA PO SCH (09:36)
[2021-01-29] MEDS: MULTIVITAMINS/MINERALS THERAP 1 TAB PO SCH (09:36)
[2021-01-29] MEDS: guaiFENesin ER 600 MG TAB PO SCH ×2 (09:36→20:14)
[2021-01-29 10:43] LABS: ABG BASE EXCESS 0.6 (-2.0-2.0); ABG HCO3 24.6 MEQ/L (22.0-26.0); ABG O2 SATURATION 96.6 % (95.0-99.0); ABG PARTIAL PRESSURE CO2 37.1 mmHg (35.0-45.0); ABG PARTIAL PRESSURE O2 88.2 mmHg (75.0-100.0); ABG TOTAL CO2 25.7 MEQ/L (23.0-31.0); ABG pH (ARTERIAL) 7.439 UNITS (7.350-7.450)
[2021-01-29] MEDS: hydrOXYzine 25 MG TAB PO PRN (20:14)
[2021-01-29] MEDS ORDERED: CAPTOpril 6.25 MG PER 1/2 TABLET PO ONE (20:20)
[2021-01-29] MEDS ORDERED: LORazepam 2 MG/ML VIAL IV STA (20:22)
[2021-01-30] VITALS (10 sets, daily range): BP systolic 124–179; BP diastolic 56–77; O2SAT 92
[2021-01-30] MEDS: hydrOXYzine 25 MG TAB PO PRN ×2 (04:23→20:24)
[2021-01-30] MEDS: MULTIVITAMINS/MINERALS THERAP 1 TAB PO SCH (09:01)
[2021-01-30] MEDS: guaiFENesin ER 600 MG TAB PO SCH ×2 (09:02→20:25)
[2021-01-30] MEDS: amLODIPine 5 MG TAB PO SCH (09:02)
[2021-01-30] MEDS: BARICITINIB 2MG TABLET (OLUMIANT) FOR EUA PO SCH (09:02)
[2021-01-30] MEDS: dexameTHASONE 4 MG/ML 1ML VIAL (J1100 PER 1MG) IV SCH (09:02)
[2021-01-30 13:41] LABS: PROTHROMBIN TIME 49.4 SECONDS (12.7-14.5)
[2021-01-30 13:46] LABS: INR 5.42
[2021-01-30] MEDS: WARFARIN SOD 5MG TAB PO SCH (17:00)
[2021-01-30] MEDS: ACETAMINOPHEN TAB 650MG DOSE (2X325MG) PO PRN (20:24)
[2021-01-30] MEDS: LORazepam 2 MG/ML VIAL IV PRN (20:25)
[2021-01-30] MEDS: SODIUM CHLORIDE NASAL 0.65% SPRAY BTL (OCEAN) PRN (20:26)
[2021-01-31] VITALS (8 sets, daily range): BP systolic 112–171; BP diastolic 59–73; O2SAT 94
[2021-01-31 05:22] LABS: PROTHROMBIN TIME 47.6 SECONDS (12.7-14.5)
[2021-01-31 07:25] LABS: INR 5.17
[2021-01-31 08:35] LABS: BASO % 0.2 % (0.0-1.0); HEMATOCRIT 34.3 % (42.0-52.0); HEMOGLOBIN 11.6 g/dl (13.5-17.5); LYMPH # 0.3 10^3/uL (1.5-5.0); LYMPH % 1.6 % (24.0-44.0); MEAN CORPUSCULAR HEMOGLOBIN 31.9 pg (27.0-33.0); MEAN CORPUSCULAR HGB CONC 33.8 g/dl (32.0-36.5); MEAN CORPUSCULAR VOLUME 94.2 fl (80.0-96.0); MONO # 0.8 10^3/uL (0.0-0.8); MONO % 4.2 % (2.0-8.0); NEUTROPHILS % 92.4 % (36.0-66.0); PLATELET COUNT, AUTOMATED 166 10^3/uL (150-450); RED BLOOD COUNT 3.64 10^6/uL (4.30-6.10); WHITE BLOOD COUNT 18.4 10^3/uL (4.0-10.0)
[2021-01-31 09:00] LABS: ALBUMIN 2.4 GM/DL (3.2-5.2); ALT/SGPT 35 U/L (12-78); BILIRUBIN,TOTAL 1.2 MG/DL (0.2-1.0); BLOOD UREA NITROGEN 54 MG/DL (7-18); CALCIUM LEVEL 8.5 MG/DL (8.8-10.2); CARBON DIOXIDE LEVEL 29 MEQ/L (21-32); CHLORIDE LEVEL 103 MEQ/L (98-107); CREATININE FOR GFR 1.07 MG/DL (0.70-1.30); GLOMERULAR FILTRATION RATE > 60.0 (>49); GLUCOSE, FASTING 116 MG/DL (70-100); POTASSIUM SERUM 4.6 MEQ/L (3.5-5.1); SODIUM LEVEL 137 MEQ/L (136-145); TOTAL PROTEIN 5.8 GM/DL (6.4-8.2)
[2021-01-31] MEDS: dexameTHASONE 4 MG/ML 1ML VIAL (J1100 PER 1MG) IV SCH (09:25)
[2021-01-31] MEDS: guaiFENesin ER 600 MG TAB PO SCH ×2 (09:25→21:05)
[2021-01-31] MEDS: BARICITINIB 2MG TABLET (OLUMIANT) FOR EUA PO SCH (09:26)
[2021-01-31] MEDS: amLODIPine 5 MG TAB PO SCH (09:27)
[2021-01-31] MEDS: MULTIVITAMINS/MINERALS THERAP 1 TAB PO SCH (09:27)
[2021-01-31] MEDS: ACETAMINOPHEN TAB 650MG DOSE (2X325MG) PO PRN ×2 (12:14→21:05)
[2021-01-31] MEDS ORDERED: CAPTOpril 6.25 MG PER 1/2 TABLET PO ONE (20:40)
[2021-01-31] MEDS: LORazepam 2 MG/ML VIAL IV PRN (21:03)
[2021-01-31] MEDS: hydrOXYzine 25 MG TAB PO PRN (21:06)
[2021-01-31] MEDS: SODIUM CHLORIDE NASAL 0.65% SPRAY BTL (OCEAN) PRN (21:07)
[2021-02-01 00:05] VITALS: BP 101/51
[2021-02-01] MEDS: LORazepam 2 MG/ML VIAL IV PRN (01:47)
[2021-02-01 05:26] LABS: BLOOD UREA NITROGEN 56 MG/DL (7-18); CALCIUM LEVEL 8.3 MG/DL (8.8-10.2); CARBON DIOXIDE LEVEL 22 MEQ/L (21-32); CHLORIDE LEVEL 106 MEQ/L (98-107); CREATININE FOR GFR 1.21 MG/DL (0.70-1.30); GLOMERULAR FILTRATION RATE > 60.0 (>49); GLUCOSE, FASTING 118 MG/DL (70-100); MAGNESIUM LEVEL 2.4 MG/DL (1.8-2.4); PHOSPHORUS LEVEL 4.1 MG/DL (2.5-4.9); SODIUM LEVEL 135 MEQ/L (136-145)
[2021-02-01 06:24] VITALS: BP 116/62
[2021-02-01 07:59] LABS: HEMATOCRIT 37.4 % (42.0-52.0); HEMOGLOBIN 12.4 g/dl (13.5-17.5); MEAN CORPUSCULAR HEMOGLOBIN 31.3 pg (27.0-33.0); MEAN CORPUSCULAR HGB CONC 33.2 g/dl (32.0-36.5); MEAN CORPUSCULAR VOLUME 94.4 fl (80.0-96.0); PLATELET COUNT, AUTOMATED 167 10^3/uL (150-450); RED BLOOD COUNT 3.96 10^6/uL (4.30-6.10); WHITE BLOOD COUNT 22.3 10^3/uL (4.0-10.0)
[2021-02-01 08:11] LABS: INR 4.17; PROTHROMBIN TIME 40.5 SECONDS (12.7-14.5)
[2021-02-01] MEDS: amLODIPine 5 MG TAB PO SCH (09:00)
[2021-02-01 09:03] VITALS: BP 124/64
[2021-02-01] MEDS: MULTIVITAMINS/MINERALS THERAP 1 TAB PO SCH (09:04)
[2021-02-01] MEDS: BARICITINIB 2MG TABLET (OLUMIANT) FOR EUA PO SCH (09:04)
[2021-02-01] MEDS: guaiFENesin ER 600 MG TAB PO SCH ×2 (09:04→20:05)
[2021-02-01] MEDS: dexameTHASONE 4 MG/ML 1ML VIAL (J1100 PER 1MG) IV SCH (09:05)
[2021-02-01 12:00] VITALS: BP 142/70
[2021-02-01 16:00] VITALS: BP 154/67
[2021-02-01 20:00] VITALS: BP 136/63
[2021-02-01] MEDS: ACETAMINOPHEN TAB 650MG DOSE (2X325MG) PO PRN (20:05)
[2021-02-02] VITALS: BP_SYST 136; BP_DIAS 63; BP_DIAS 68
[2021-02-02 04:00] VITALS: BP 158/80
[2021-02-02] MEDS: hydrOXYzine 25 MG TAB PO PRN ×2 (04:47→12:37)
[2021-02-02 04:57] LABS: INR 3.76; PROTHROMBIN TIME 37.4 SECONDS (12.7-14.5)
[2021-02-02 08:30] VITALS: BP 144/65
[2021-02-02] MEDS: MULTIVITAMINS/MINERALS THERAP 1 TAB PO SCH (08:45)
[2021-02-02] MEDS: amLODIPine 5 MG TAB PO SCH (08:45)
[2021-02-02] MEDS: guaiFENesin ER 600 MG TAB PO SCH ×2 (08:45→20:00)
[2021-02-02] MEDS: LORazepam 2 MG/ML VIAL IV PRN (10:57)
[2021-02-02] MEDS: BARICITINIB 2MG TABLET (OLUMIANT) FOR EUA PO SCH (10:57)
[2021-02-02] MEDS: dexameTHASONE 4 MG/ML 1ML VIAL (J1100 PER 1MG) IV SCH (12:38)
[2021-02-02 13:00] VITALS: BP 133/60
[2021-02-02 16:00] VITALS: BP 139/63
[2021-02-02] MEDS: WARFARIN SOD 5MG TAB PO SCH (18:31)
[2021-02-02 20:00] VITALS: BP 123/56
[2021-02-03] VITALS: BP 128/58
[2021-02-03 04:00] VITALS: BP 140/58
[2021-02-03 05:41] LABS: HEMATOCRIT 37.1 % (42.0-52.0); HEMOGLOBIN 12.2 g/dl (13.5-17.5); MEAN CORPUSCULAR HEMOGLOBIN 31.5 pg (27.0-33.0); MEAN CORPUSCULAR HGB CONC 32.9 g/dl (32.0-36.5); MEAN CORPUSCULAR VOLUME 95.9 fl (80.0-96.0); PLATELET COUNT, AUTOMATED 129 10^3/uL (150-450); RED BLOOD COUNT 3.87 10^6/uL (4.30-6.10); WHITE BLOOD COUNT 24.8 10^3/uL (4.0-10.0)
[2021-02-03 06:11] LABS: MAGNESIUM LEVEL 2.7 MG/DL (1.8-2.4); PHOSPHORUS LEVEL 4.4 MG/DL (2.5-4.9)
[2021-02-03 06:16] LABS: ALBUMIN 2.3 GM/DL (3.2-5.2); BILIRUBIN,TOTAL 1.3 MG/DL (0.2-1.0); CALCIUM LEVEL 9.1 MG/DL (8.8-10.2); CREATININE FOR GFR 1.5 MG/DL (0.70-1.30); GLOMERULAR FILTRATION RATE 50.2 (>49); TOTAL PROTEIN 6.7 GM/DL (6.4-8.2)
[2021-02-03 08:07] LABS: INR 3.46; PROTHROMBIN TIME 35.1 SECONDS (12.7-14.5)
[2021-02-03 08:35] VITALS: BP 159/69
[2021-02-03 08:50] VITALS: BP 159/69
[2021-02-03] MEDS: guaiFENesin ER 600 MG TAB PO SCH (08:50)
[2021-02-03] MEDS: amLODIPine 5 MG TAB PO SCH (08:50)
[2021-02-03] MEDS: dexameTHASONE 4 MG/ML 1ML VIAL (J1100 PER 1MG) IV SCH (08:51)
[2021-02-03] MEDS: BARICITINIB 2MG TABLET (OLUMIANT) FOR EUA PO SCH (08:51)
[2021-02-03] MEDS: MULTIVITAMINS/MINERALS THERAP 1 TAB PO SCH (08:51)
[2021-02-03] MEDS: hydrOXYzine 25 MG TAB PO PRN (08:51)
[2021-02-03] MEDS: LORazepam 2 MG/ML VIAL IV PRN (11:21)
[2021-02-03 12:00] VITALS: BP 144/67
[2021-02-03] MEDS ORDERED: MORPHINE 2 MG/ML 1ML VIAL (J2270) IV ONE (16:00)
[2021-02-03] MEDS ORDERED: SCOPOLAMINE 1MG TRANSDERMAL PATCH TOP PRN (16:05)
[2021-02-03] MEDS ORDERED: ONDANSETRON 4MG/2ML VIAL IV PRN (16:05)
[2021-02-03] MEDS ORDERED: LORazepam 2 MG/ML VIAL IV PRN (16:05)
[2021-02-03] MEDS ORDERED: MORPHINE 2 MG/ML 1ML VIAL (J2270) IV PRN (16:05)
== END 2021-02-03 17:00 | disposition expired | DRG 177 ==
LOC: M ED 08:38 → M ED INP 11:26 → ENRESERV 13:48 → M 4MAIN 16:15 → M ICU 01-25 14:29
PROVIDERS: ADMIT Internal Medicine; ATTEND Internal Medicine
DX: U07.1 COVID-19 (principal); J96.01 Acute respiratory failure with hypoxia; J12.82 Pneumonia due to coronavirus disease 2019; J80 Acute respiratory distress syndrome; E87.1 Hypo-osmolality and hyponatremia; Z68.41 Body mass index [BMI] 40.0-44.9, adult; E66.01 Morbid (severe) obesity due to excess calories; N18.30 Chronic kidney disease, stage 3 unspecified; I12.9 Hypertensive chronic kidney disease with stage 1 through stage 4 chronic kidney disease, or unspecified chronic kidney disease; Z66 Do not resuscitate; Z51.5 Encounter for palliative care; Z88.6 Allergy status to analgesic agent; E55.9 Vitamin D deficiency, unspecified; Z85.038 Personal history of other malignant neoplasm of large intestine; Z79.899 Other long term (current) drug therapy; Z95.0 Presence of cardiac pacemaker; G47.33 Obstructive sleep apnea (adult) (pediatric); Z95.2 Presence of prosthetic heart valve; R79.1 Abnormal coagulation profile